=== PATIENT | male | born 1985 | race American Indian/Alaskan Native ===

== ENCOUNTER 2022-05-03 07:57 | Emergency (ER) | payer SELFPAY ==
[2022-05-03 10:04] VITALS: BP 121/72
--- NOTE | 2022-05-03 10:44 | Emergency Department Report ---
Minor Respiratory - HPI Chief Complaint: Sore Throat Stated Complaint: SORE THROAT/SWOLLEN MOUTH/GUMS Time Seen by Provider: 05/03/22 10:41 Duration: 2 Days Pain Location: Throat Severity: mild Minor Respiratory: Yes Sore Throat, Yes Able to Tolerate Fluids, No Rhinorrhea, No Ear Pain, No Cough, No Sick Contacts, No Hemoptysis, No Chest Pain, No Shortness of Breath, No Fever Other History: Patient is a 36-year-old that comes to the ER complaining of sore throat. He denies any fever. Endorses chills. He also endorses gum pain. Denies chest pain or shortness of breath. Patient ambulatory, not ill nontoxic on exam. No abscess. No Ludewig's. No trismus. ABCs intact. Vital signs stable ED Review of Systems ROS: Stated complaint: SORE THROAT/SWOLLEN MOUTH/GUMS Other details as noted in HPI Comment: All other systems reviewed and negative ED Past Medical Hx - Past Medical History Previous Medical History?: No - Surgical History Past Surgical History?: No - Family History Family history: no significant - Social History Smoking Status: Current Every Day Smoker Substance Use Type: Alcohol - Medications Home Medications: Home Medications Medication Instructions Recorded Confirmed Last Taken Type Amoxicillin [Trimox CAP] 500 mg PO BID #20 capsule 05/03/22 Unknown Rx Minor Respiratory Exam - Exam General: Vital signs noted. No distress. Alert and acting appropriately. HEENT: Yes Pharyngeal Erythema, Yes Moist Mucous Membranes, No Pharyngeal Exudates, No Rhinorrhea, No Conjuctival Injection, No Frontal Tenderness, No Maxillary Tenderness Ear: Neither TM Bulge, Neither TM Erythema, Neither EAC Pain, Neither EAC Discharge Neck: Yes Supple, No Adenopathy Lungs: Yes Good Air Exchange, No Wheezes, No Ronchi, No Stridor, No Cough, No Labored Respirations, No Retractions, No Use of Accessory Muscles, No Other Abnormal Lung Sounds Heart: Yes Regular, No Murmur Abdomen: Yes Normal Bowel Sounds, No Tenderness, No Peritoneal Signs Skin: No Rash, No Edema Neurologic: Alert and oriented, no deficits. Musculoskeletal: Unremarkable. ED Course Vital Signs 05/03/22 10:02 Temperature 98.7 F Pulse Rate 67 Respiratory 16 Rate Blood Pressure 121/72 [Left] O2 Sat by Pulse 100 Oximetry ED Medical Decision Making - Medical Decision Making Vital Signs 05/03/22 10:02 Temperature 98.7 F Pulse Rate 67 Respiratory 16 Rate Blood Pressure 121/72 [Left] O2 Sat by Pulse 100 Oximetry Vital signs stable. No trismus. No abscess. ABCs intact. Patient taking p.o. patient ambulatory and in no acute distress Patient being discharged home with discharge plan of care including diet, activity, medications and follow-up. He verbalizes understanding of plan of care - Differential Diagnosis URI Critical care attestation.: If time is entered above; I have spent that time in minutes in the direct care of this critically ill patient, excluding procedure time. ED Disposition Clinical Impression: Pharyngitis Qualifiers: Pharyngitis/tonsillitis etiology: other specified organisms Qualified Code(s): J02.8 - Acute pharyngitis due to other specified organisms Disposition: HOME / SELF CARE / HOMELESS Is pt being admited?: No Does the pt Need Aspirin: No Condition: Stable Additional Instructions: Medications as ordered until gone. Motrin or Tylenol for pain Follow-up with PCP when completed with antibiotics. Have given you referral below Referrals: CARMELITA CURRY MD [Staff Physician] - 3-5 Days Time of Disposition: 10:49
== END 2022-05-03 15:04 | disposition home or self-care (01) ==
LOC: ED 07:57
DX: J02.9 Acute pharyngitis, unspecified (principal); F17.200 Nicotine dependence, unspecified, uncomplicated
CPT/HCPCS: 99282